=== PATIENT | male | born 1980 | race Two or more races ===

== ENCOUNTER 2022-11-01 22:27 | Emergency (ER) | payer BC ==
[~2022-11-01] VITALS: Ht 188 cm; Wt 95.3 kg
--- NOTE | 2022-11-01 23:18 | NUR ---
BIBSELF C/O L INDEX FINGER LAC AT WORK. TDAP UPDATED. PT A/OX4. TOLERATING R/A WELL WITH NO RESP DISTRESS.
[2022-11-01] MEDS ORDERED: CEPHALEXIN MONOHYDRATE 500 MG CAPSULE PO ONE (23:30)
--- NOTE | 2022-11-01 23:41 | NUR ---
VENUE MANAGER AT PT'S BEDSIDE
--- NOTE | 2022-11-02 00:10 | NUR ---
DR IVETT ASCENCIO AT 'S FOR SUTURES TO L INDEX FINGER. SPLINT APPLIED.
[2022-11-02] MEDS ORDERED: CEPH500T PO (00:15)
[2022-11-02] MEDS ORDERED: CEPHALEXIN MONOHYDRATE 500 MG CAPSULE PO ONE (00:18)
--- NOTE | 2022-11-02 00:22 | NUR ---
Patient discharged to home in stable condition. Written and verbal after care instructions given. Patient verbalizes understanding of instruction.
[2022-11-02 00:27] VITALS: BP 131/67
[2022-11-03] MEDS ORDERED: CEPH500T PO (18:08)
== END 2022-11-02 00:27 | disposition home or self-care (01) ==
LOC: ER 22:34
DX: S61.212A Laceration without foreign body of right middle finger without damage to nail, initial encounter (principal); W27.0XXA Contact with workbench tool, initial encounter; Y93.89 Activity, other specified; Y92.89 Other specified places as the place of occurrence of the external cause; Y99.8 Other external cause status
CPT/HCPCS: 73130-TC

== ENCOUNTER 2022-11-03 17:25 | Emergency (ER) | payer BC ==
[~2022-11-03] VITALS: Ht 188 cm; Wt 104.3 kg
[~2022-11-03 17:25] MED LIST: CEPH500T PO
[2022-11-03 17:35] VITALS: BP 140/77
[2022-11-03] MEDS ORDERED: CEPH500T PO (18:08)
== END 2022-11-03 18:16 | disposition home or self-care (01) ==
LOC: ER 17:32
DX: M79.642 Pain in left hand (principal); Z79.899 Other long term (current) drug therapy